=== PATIENT | male | born 1990 | race Caucasian/White ===

== ENCOUNTER 2016-10-22 13:41 | Emergency (ER) | payer BC ==
[2016-10-22 13:49] VITALS: BP 135/71
--- NOTE | 2016-10-22 14:22 | UC ---
Ear Complaint HPI - HPI Summary HPI Summary: 26 y o male with right ear fullness and pain x days hx of cerumen impaction no URI symptoms decreased hearing - History of Current Complaint Chief Complaint: UCEar Stated Complaint: EAR PAIN Time Seen by Provider: 10/22/16 14:00 Hx Obtained From: Patient Onset/Duration: Sudden Onset Severity Initially: Moderate Severity Currently: Mild Pain Intensity: 4 Pain Scale Used: 0-10 Numeric Associated Signs/Symptoms: Positive: Hearing Loss - Allergies/Home Medications Allergies/Adverse Reactions: Allergies Allergy/AdvReac Type Severity Reaction Status Date / Time Benzonatate [From Tessalon] Allergy Hives Verified 10/22/16 13:49 amoxicillin Allergy Hives Uncoded 10/22/16 13:49 pollen Allergy Eyes Uncoded 10/22/16 13:49 Itchy/Swollen/Red/Watery Home Medications: Home Medications Amphetamine-Dextroamphetamine [Adderall XR 30 mg-] 15 mg PO DAILY 10/22/16 [ History Confirmed 10/22/16] Montelukast Sodium TAB* [Singulair TAB*] 10 mg PO DAILY 10/22/16 [History Confirmed 10/22/16] PMH/Surg Hx/FS Hx/Imm Hx Previously Healthy: Yes - Surgical History Surgical History: None - Family History Known Family History: Positive: Hypertension, Respiratory Disease Negative: Cardiac Disease, Diabetes - Social History Alcohol Use: Rare Substance Use Type: None Smoking Status (MU): Never Smoked Tobacco Have You Smoked in the Last Year: No - Immunization History Most Recent Influenza Vaccination: no Review of Systems Constitutional: Negative Skin: Negative Eyes: Negative ENT: Ear Ache Respiratory: Negative Cardiovascular: Negative Gastrointestinal: Negative Genitourinary: Negative Motor: Negative Neurovascular: Negative Musculoskeletal: Negative Neurological: Negative Psychological: Negative All Other Systems Reviewed And Are Negative: Yes Physical Exam Triage Information Reviewed: Yes Appearance: Well-Appearing, No Pain Distress, Well-Nourished Vital Signs: Initial Vital Signs Temp 98.4 F 10/22/16 13:44 Pulse 94 10/22/16 13:44 Resp 15 10/22/16 13:44 BP 135/71 10/22/16 13:44 Pulse Ox 100 10/22/16 13:44 Eyes: Positive: Conjunctiva Clear. Negative: Conjunctiva Inflamed, Discharge ENT: Negative: Hearing grossly normal, Nasal congestion, Nasal drainage, TMs normal - cerumen bilat- unable to visualize Neck: Positive: Supple, Nontender Respiratory: Positive: Lungs clear, Normal breath sounds, No respiratory distress Cardiovascular: Positive: RRR, No Murmur Musculoskeletal: Positive: ROM Intact, No Edema Neurological: Positive: Alert Psychological Exam: Normal Skin Exam: Normal Re-Evaluation - Re-Evaluation First Eval Re-Evaluation Time: 14:32 Change: Improved - hearing back to normal/right tm normal/EAC irritated Ear Complaint Course/Dx - Differential Dx/Diagnosis Provider Diagnoses: cerumen impaction. RIght otitis externa Discharge - Discharge Plan Condition: Stable Disposition: HOME Prescriptions: Neomyc/Polym/HC 1% OTIC SUSP* [Cortisporin Otic Susp 1%*] 4 drop RIGHT EAR QID # 1 btl Patient Education Materials: Cerumen Impaction (ED) Referrals: Abe Olson DO [Primary Care Provider] - 1 Week (if not better) Additional Instructions: right ear canal irritated use drops as directed no q tips
== END 2016-10-22 14:55 | disposition home or self-care (01) ==
LOC: UCCORT 13:41
DX: H61.21 Impacted cerumen, right ear (principal); H60.91 Unspecified otitis externa, right ear
CPT/HCPCS: 99213; G0463